=== PATIENT | male | born 1965 | race Two or more races ===

== ENCOUNTER 2021-03-08 13:33 | Outpatient (REF) | payer BC, SELFPAY ==
[2021-03-08 14:23] LABS: Binax Internal Control QC Valid; Binax Lot number: 9864; Binax Now Covid-19 Ag Positive (Negative)
== END 2021-03-08 13:34 | disposition home or self-care (01) ==
LOC: HO.LAB 13:33
PROVIDERS: Visit Provider Internal Medicine
DX: Z20.822 Contact with and (suspected) exposure to COVID-19 (principal)
CPT/HCPCS: 36415; C9803